=== PATIENT | female | born 1940 | race Caucasian/White ===

== ENCOUNTER 2017-02-01 11:15 | Inpatient (IN) | payer MEDICARE, OTHER ==
[~2017-02-01] VITALS: Ht 157.5 cm; Wt 60.8 kg
--- NOTE | ~2017-02-01 | ECH ---
Transthoracic Echocardiography Report (TTE) Demographics Patient Name NELY MESA Date of Study 02/03/2017 Patient Number [id number] Visit Number [id number] Date of 1940 Room Number 425 Accession Number [id number] Gender Female Age 76 year(s) Referring Ranjith De La Rosa Spray Machine Operator Jada Boland [facility] Physician Physician Interpreting Jess Bernardo Processes Chemical Design Engineer Physician Supervising Ordering Physician Ye Anderson MD/MIRELLA LOPEZ Nurse Stress Track Layer Conclusions Contractility Score Summary At rest the following contractility abnormalities were noted: Akinesis of the Apical cap segment. Contractility of all other segments appeared normal. Summary Technically fair exam. The estimated left ventricular ejection fraction is 55-60%. Mild to moderate left ventricular hypertrophy with [place] measuring 1.3-1.49cm, septum 1.4cm, LVPW 1.2cm. Diastolic assessment reveals Grade I diastolic dysfunction. Right ventricular hypertrophy with wall measuring 1.2cm. Right ventricle normal size and function. The left atrium is severely dilated by LA volume index measurement. Lipomatous interatrial septum. Mild mitral regurgitation by color Doppler. There is trivial aortic regurgitation by color Doppler. The ascending aorta appears mildly dilated. The maximum diameter measures 3.56 cm. Recommendation The patient will be given the results of this study by the physician who ordered the exam. Procedure Type of Study TTE procedure:Echo Complete SF. Procedure Date Date: 02/03/2017 Start: 07:25 AM Technical Quality: Adequate visualization Indications:Congestive heart failure and Chest pain. Additional Indications:Apical hypertrophy, RVH Appropriate Use Criteria: 9 Height: 62 inches Weight: 131 pounds BSA: 1.6 m Rhythm: Sinus bradycardia HR: 56 bpm BP: 130/66 mmHg M-Mode/2D Measurements LV Diastolic Dimension: 4.42 cm LV Systolic Dimension: 3.44 cm LV Septum Diastolic: 1.36 cm LV PW Diastolic: 1.22 cm AO Root Dimension: 2.49 cm Cardiac Output: 3.14 l/min LA Dimension: 5 cm Cardiac Index: 1.96 l/min*m LA volume index: 68 ml/m LVOT: 1.74 cm RV Base: 2.39 cm LVOT VTI: 23.58 cm RV Mid: 1.63 cm LV Stroke volume: 56.04 ml RV Length: 6.78 cm LV Stroke volume index: 35.02 ml/m Doppler Measurements AV Peak Velocity: 1.1 m/s MV Peak E-Wave: 0.75 m/s AV Peak Gradient: 4.84 mmHg MV Peak A-Wave: 0.93 m/s AV Mean Gradient: 2.67 mmHg MV E/A Ratio: 0.8 LVOT Peak Velocity: 0.93 m/s MV P1/2t: 139.4 msec AV Area (Continuity):1.74 cm MV Deceleration Time: 480.8 msec TR Velocity:1.93 m/s MV Area (PHT): 1.58 cm TR Gradient:14.84 mmHg PV Peak Velocity: 1.1 m/s Estimated RAP:5 mmHg PV Peak Gradient: 4.84 mmHg Estimated RVSP: 20 mmHg Estimated PASP: 19.84 mmHg RA Area: 9.58 cm Findings Left Ventricle The left ventricle is normal in size . Mild to moderate left ventricular hypertrophy with [place] measuring 1.3-1.49cm, septum 1.4cm, LVPW 1.2cm.Diastolic assessment reveals Grade I diastolic dysfunction. Right Ventricle Right ventricular hypertrophy with wall measuring 1.2cm. Right ventricle normal size and function. Left Atrium The left atrium is severely dilated by LA volume index measurement. Lipomatous interatrial septum. Right Atrium Normal right atrial size. Mitral Valve Mild mitral annular calcification. Mild mitral regurgitation by color Doppler. Aortic Valve The aortic valve was not well imaged. There is trivial aortic regurgitation by color Doppler. Tricuspid Valve Normal appearing tricuspid valve. Mild tricuspid regurgitation by color Doppler. Pulmonic Valve The pulmonic valve is not well visualized. Pericardial Effusion Trivial pericardial effusion. Miscellaneous The ascending aorta appears mildly dilated. The maximum diameter measures 3.56 cm. Pleural Effusion No evidence of pleural effusion. Contractility Score LV regional wall motion:(0-Non visualized 1-Normal 2-Hypokinesis 3-Akinesis 4-Dyskinesis 5-Aneurysm) Signature
[~2017-02-01 11:15] MED LIST: ASPIRIN EC81 MG PO; BUSPAR DPS10 MG PO; BYSTOLIC5 MG PO; CIPRO DPS500 MG PO; CYMBALTA30 MG PO; FAMOTIDINE40 MG PO; FLAGYL-DPS500 MG PO; FLORINEF0.1 MG PO; LASIX DPS20 MG PO; LYRICA50 MG PO; MORPHINE SULFAT15 M1 PO; OXYCODONE-ACET1 EAC1 PO; POTASSIUM CHLO20 ME2 PO; PRILOSEC DPS20 MG PO; SYNTHROID DP0.075 MG PO; VITAMIN D31000 UNIT PO; ZYLOPRIM-DPS300 MG PO
[2017-02-04] MEDS ORDERED: LOPRESSOR DPS12.5 MG PO (11:12)
--- NOTE | 2017-02-12 14:39 | ER ---
ADMIT: 02/01/2017 RM/LOC: 425 [facility] MR#: [id number] [address] [facility] [address] [place] [id number] NELY MESA [address] [place] [address] Emergency Room Report SEX: F AGE: 76 : 1940 DATE: 02/01/2017 ADDENDUM: CHIEF COMPLAINT: Hard to take a deep breath. HISTORY OF PRESENT ILLNESS: This is a 76-year-old, who said she just feels like she has a hard time taking a deep breath for the last 24 hours, but when she actually walks and moves around, she said it helps. She just feels like her abdomen is full and pushing up on her diaphragm. COURSE IN THE EMERGENCY ROOM: Did give her a GI cocktail, along with checked some labs and an EKG. Overall findings, EKG showed sinus bradycardia at a rate of 53. No ST elevation or depression. CMP is normal except for troponin elevated at 0.061. ProBNP elevated at 30,369. Electrolytes were otherwise normal. Her CBC is normal except for hemoglobin of 10.7, hematocrit of 32.4. Chest x-ray did show CHF. When asking her how the GI cocktail affected her, she said it actually improved her symptoms. She felt quite a bit better. Due to her elevated BNP and troponin, I am having her admitted in the hospital. I spoke with Dr. De La Cruz. She is admitting for Dr. Kasper. Lasix 40 mg IV is started down here in the emergency room. IMPRESSION: 1. Congestive heart failure exacerbation. 2. Elevated troponin. DIAN Farley / Mayank Colon MD / jitendral JOB #: [id number] CC: Rj Kasper MD, Attending Physician Rj Kasper MD, Family Physician
--- NOTE | 2017-02-13 10:56 | CO ---
ADMIT: 02/01/2017 RM/LOC: 425 [facility] MR#: [id number] [address] [address] NELY MESA [address] [place], [place] [id number] Consultation SEX: F AGE: 76 : 1940 DATE OF CONSULTATION: 02/02/2017 ATTENDING PHYSICIAN: Rj Kasper CONSULTING PHYSICIAN: Pradip Belcher MD REASON FOR CONSULTATION: Heart failure. HISTORY OF PRESENT ILLNESS: Nely is a 76-year-old lady, with an interesting history. In 2007, apparently, she had a heart catheterization and was diagnosed at that time with a hypertrophic cardiomyopathy variant. 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 This was complicated by history of orthostasis. She has been on low-dose Lasix along with Florinef and low-dose beta-rob therapy. She just saw Dr. Mercado, I believe in November, at that time, her Bystolic was stopped and she was put on metoprolol. For the past several months, she has been having fatigue and feeling tired. She has also been struggling with a vague abdominal pain. She describes as a pressure sensation or bloating in her upper abdomen. She has not been checking her blood pressure routinely. Over the past 7 to 10 days, her symptoms of abdominal bloating have worsened. She has had some tightness across her upper abdomen, she has had some orthopnea, but no PND. Friday morning, she woke up and she was unable to even take a full breath. This is what prompted her to come to the hospital. She said she would attempt to walk, but was limited by her shortness of breath. The emergency room evaluation revealed a proBNP of 13,000, her chest x-ray revealed evidence of heart failure and she was subsequently admitted. ALLERGIES: NO KNOWN MEDICAL ALLERGIES. HOME MEDICATIONS: Include: 1. Lyrica 50 mg at bedtime. 2. Omeprazole 20 mg daily. 3. Synthroid 75 mcg daily. 4. Allopurinol 300 mg daily. 5. Buspirone 10 mg b.i.d. 6. Cymbalta 30 mg daily. 7. Potassium 20 mEq b.i.d. 8. Florinef 0.1 mg daily. 9. Lasix 20 mg daily. 10.Pepcid 40 mg at bedtime. 11.Oxycodone. 12.Tylenol p.r.n. 13.Metoprolol 25 mg b.i.d. ILLNESSES: Include her apical hypertrophic cardiomyopathy, history of hypertension, orthostasis, history of iron deficiency anemia, restless legs syndrome, chronic low back pain, gastroesophageal reflux disease, hypothyroidism, and gout. ADMIT: 02/01/2017 RM/LOC: 425 [facility] MR#: [id number] [address] [address] NELY MESA [address] [place] [address] Consultation SEX: F AGE: 76 : 1940 PAST SURGICAL HISTORY: Includes previous back surgeries, hernia surgery, tonsillectomy, appendectomy. She has had tear duct surgery, cholecystectomy, and a hysterectomy. Right rotator cuff repair. FAMILY HISTORY: She said she had 1 brother, who had congenital heart disease; another brother, who recently was diagnosed with coronary disease and had coronary stents. She has a daughter, whom she is not quite sure of the history, but sounds like she suffered from heart failure. One brother with diabetes, her father had bladder cancer, mother and a daughter had breast cancer, another brother had lung cancer, mother and brother both with stroke. SOCIAL HISTORY: She is from the [place] originally. She moved here over the past several years. She has been for 8 years. She has 4 daughters. She used to work in a bank. She drinks only occasional beer now and then. No history of illicit drug use. Drinks 2 to 3 cups of coffee a day. Does not follow a special diet. REVIEW OF SYSTEMS: GENERAL: She tires easily and has been going on for 4 to 6 weeks. She has gained about 20 pounds over the past couple months. EYES: Positive for cataracts. ENT: Denies hearing loss or problems with nose, mouth or throat. PULMONARY/RESPIRATORY: She wakes more than once a night, feels tired in the morning. GASTROINTESTINAL: Positive for hiatal hernia. GENITOURINARY: Denies dysuria, hematuria, nocturia, urinary tract infection, or kidney stones. Denies history of renal insufficiency or failure. MUSCULOSKELETAL: Positive for arthritis, gout, muscle and joint pains. ENDOCRINE: Positive for hypothyroidism. HEMATOLOGIC: Denies history of anemia, easy bruising, or cancer. NEUROLOGIC: Denies chronic headaches, dizziness, syncope, stroke, seizures or numbness or tingling. PSYCHIATRIC: Positive for depression and anxiety. PHYSICAL EXAMINATION: VITAL SIGNS: Her blood pressure is 144/92, her pulse is 57, her respirations are 16, O2 saturations are 94% on room air. SKIN: Mildly pale. EYES: Sclerae clear. No xanthelasmas. ENT: Oral mucosa is pink and moist. No jugular venous distention or carotid bruits. CHEST: Mild kyphosis. Respirations are even and unlabored. Lungs are clear to auscultation. HEART: Regular. Mildly bradycardic. There is a soft systolic murmur heard mostly at the base. The 2nd heart sound maybe slightly prominent compared to the 1st heart sound. I cannot feel the point of maximum impulse. ABDOMEN: Protuberant, firm, mildly tender in the epigastric area. No bruits. MUSCULOSKELETAL: Positive for kyphosis. Gait is normal. EXTREMITIES: Peripheral pulses palpable. No clubbing, cyanosis or edema. ADMIT: 02/01/2017 RM/LOC: 425 [facility] MR#: [id number] 2620 [facility] [address] [place] [phone] NELY MESA [facility] [place] [id number] Consultation SEX: F AGE: 76 : 1940 PSYCHIATRIC: Alert and oriented. Mood and affect are appropriate. LABORATORY DATA: Sodium 138, potassium 3.9, her creatinine has increased slightly from 1.1 to 1.3, AST and ALT are normal. CK was 224, but her MB was normal. Her troponin was 0.089, proBNP is 13,000, TSH 2.08. White count 6.0, hemoglobin 10.7, and platelet count 193,000. IMAGING: Chest x-ray showed mild congestive heart failure with some interstitial edema, especially the right lung. EKG shows evidence of left ventricular hypertrophy, but no significant T-wave abnormalities, mildly prolonged QT interval. Mild left axis deviation. Sinus bradycardia. IMPRESSION: 1. Acute congestive heart failure. 2. History of apical hypertrophic cardiomyopathy. 3. Orthostasis. 4. Chronic anemia. 5. Equivocal troponin. RECOMMENDATIONS: On presentation, there is evidence of some volume expansion with an abnormal chest x-ray; elevated BNP; and increasing symptoms of orthopnea, shortness, of breath and dyspnea. She does not have a lot of edema or significant JVD, but it seems like she is retaining fluid in her abdominal region. She is already better with diuresis. I think her elevated troponin is not a reflection of an acute coronary syndrome, but is due to her heart failure with apical hypertrophic cardiomyopathy. Her treatment will be complicated by her history of orthostasis. Therefore, I would recommend that we only check her blood pressure in the standing position to adjust medications. I would like to hold her Florinef for now and we will see how she does symptomatically. We will continue diuresis today, but her creatinine has slightly increased, so we need to watch that closely. Tomorrow, we will recheck her echo to make sure that her LV function is stable and confirm this previous diagnosis of apical hypertrophic cardiomyopathy. The other consideration would be LV noncompaction. We are also going to hold any ANANDA inhibitors in the setting of her heart failure because of her orthostasis. The goal now is relieve her vascular congestion and symptomatic relief and then we can subtly and gently adjust her medications in the setting of her orthostasis. Pradip Belcher MD/ paula JOB #: [id number] CC: Rj Kasper, Attending Physician Rj Kasper, Family Physician
--- NOTE | 2017-02-14 09:59 | DS ---
ADMIT: 02/02/2017 RM/LOC: 425 [facility] MR#: [id number] [id number] [facility] [address] [place] [phone] NELY MESA [address] [place], [place] [address] Discharge Summary SEX: F AGE: 76 : 1940 ADMISSION DATE: 02/02/2017 DISCHARGE DATE: 02/03/2017 DISCHARGE DIAGNOSES: 1. Acute on chronic diastolic heart failure. 2. Hypertension. 3. History of orthostatic hypotension. 4. Hypothyroidism. 5. Elevated troponin. 6. Anemia. 7. History of apical hypertrophic cardiomyopathy. 8. Depression. 9. Anxiety. CONSULTATION: Cardiology. PROCEDURES: None. REASON FOR ADMISSION: A very pleasant 76-year-old female with past medical history of hypertrophic cardiomyopathy, orthostasis, chronic heart failure who presents to [facility] Emergency Room on the day of admission with complaints of shortness of breath and abdominal fullness along with some edema. The patient was found to be in acute heart failure and was admitted for further evaluation and treatment. For complete details, please see history and physical dictated on the day of admission. HOSPITAL COURSE: At the time of admission, the patient was admitted to a monitored bed. She had a mildly elevated troponin that was thought to be secondary to her heart failure. She underwent monitoring with serial cardiac enzymes and EKGs as well as telemetry monitoring. Cardiology saw her. She underwent an echocardiogram. She underwent diuresis. The patient improved nicely with diuresis. Her dyspnea and abdominal symptoms all completely just slowly went away. She ambulated and ate. She was switched from IV to oral diuretics. As mentioned, she ambulated, ate, and was thought to be ready for discharge on 02/03. Discharge medications are found on her discharge medication list. Discharge diet is a 2 g sodium cardiac diet as tolerated. She will have follow up with me in the next couple of weeks at [facility] and follow up in two weeks at [facility]. Rj Kasper MD/ michelle JOB #: [id number] CC: Rj Kasper MD, Attending Physician Rj Kasper MD, Family Physician
--- NOTE | 2017-02-20 12:10 | HP ---
ADMIT: 02/01/2017 RM/LOC: 425 [facility] MR#: [id number] [address] [address] NELY MESA [address] [place], [place] [address] History and Physical SEX: F AGE: 76 : 1940 DATE OF SERVICE: CHIEF COMPLAINT: Upper epigastric pressure, chest pressure. HISTORY OF PRESENT ILLNESS: Ms. Little is a very pleasant 76-year-old female. She has a past medical history significant for history of hypothyroidism, GERD, hypertrophic cardiomyopathy, iron deficiency anemia, gout, restless leg, who presented to the ER with a complaint of upper epigastric fullness. The patient reports that she has been battling with this upper epigastric fullness since October when she was in with diverticulitis. She reports over the last one week, things got much worse. She reports she has had shortness of breath and feels unable to take a deep breath. Reports she has actually had symptoms of orthopnea. She has had no lower extremity edema. She reports that she has not had any trouble as far as any palpitation. She reports she is not nauseated, but she has had some heartburn. She reports that she also has been gaining weight just over the last several weeks also. She reports that otherwise just not been feeling well. It sounds as if she has been seen on different occasions for this and it has not been completely clear what the cause was. She reports that she has had ultrasounds done although I do not have evidence of those here in the computer, but really reports she is not feeling well. In the ER, it sounds like she got a GI cocktail and actually started to feel better. They thought they were going to let her go home but then on laboratory data was noted to have a chest x-ray showing congestive heart failure as well as a BNP elevated at 13,000 and an elevated troponin I. She saw Dr. Mercado a month ago, he changed her from Bystolic 2.5 to metoprolol. PAST MEDICAL HISTORY: Significant for: 1. Hypothyroidism. 2. GERD. 3. Chronic low back pain. 4. Depression. 5. Gout. 6. Hypertension. 7. Restless leg. 8. Hypertrophic cardiomyopathy, on a heart catheterization done in 2007. 9. Iron-deficiency anemia. 10.Status post hysterectomy. 11.Status post breast surgery. 12.Status post cholecystectomy. 13.Status post spinal fusion. 14.History of cervical fusion. 15.Eye surgery. 16.Right rotator cuff repair. 17.Hernia. 18.Left carpal tunnel surgery. 19.Status post appendectomy. SOCIAL HISTORY: She lives here in [place]. She does not smoke or use ADMIT: 02/01/2017 RM/LOC: 425 [facility] MR#: [id number] [address] [address] [address]ELY M[address]A [address] [place] [address] History and Physical SEX: F AGE: 76 : 1940 any significant alcohol. MEDICATIONS: Her home medication list is: 1. Sinemet 25/100 one p.o. at bedtime. 2. Lyrica 50 mg p.o. at bedtime. 3. Omeprazole 20 mg p.o. daily. 4. Synthroid 75 mcg p.o. daily. 5. Allopurinol 300 mg p.o. daily. 6. BuSpar 10 mg p.o. b.i.d. 7. Cymbalta 30 mg p.o. daily. 8. KCl 20 mEq p.o. b.i.d. 9. Florinef 0.1 mg p.o. daily. 10.Furosemide 20 mg p.o. daily. 11.Pepcid 40 mg p.o. at bedtime. 12.Oxycodone p.r.n. 13.Metoprolol 25 mg p.o. b.i.d. ALLERGIES: NO KNOWN MEDICAL ALLERGIES. FAMILY HISTORY: Relatively noncontributory. REVIEW OF SYSTEMS: Obtained, was otherwise essentially negative except for some pain in her bilateral legs. PHYSICAL EXAMINATION: HEENT: Pupils are equal, round, and reactive. Her right eye has some scleral injection. Oropharynx has moist mucous membranes. NECK: Supple. HEART: Normal rate with a regular rhythm. LUNGS: Diminished breath sounds in the bases with a few crackles, but otherwise clear to auscultation. She does complain of light palpation on the left upper quadrant. ABDOMEN: Benign. EXTREMITIES: Have no evidence of edema. SKIN: Warm and dry. ASSESSMENT AND PLAN: 1. Upper epigastric/chest pressure, certainly resolved with a dose of IV Lasix. Elevated BNP and positive troponin, we will go ahead and trend out her cardiac enzymes. We will ask LU to see in the morning. We will go ahead and repeat her electrolytes in the morning. We will check ADMIT: 02/01/2017 RM/LOC: 425 [facility] MR#: [id number] [address] [address] BONITANELY BATISTA [address] [place] [address] History and Physical SEX: F AGE: 76 : 1940 orthostatic blood pressure and pulse, likely does not need her Florinef at this time as her blood pressure is running pretty high. We will go ahead and check a TSH with her history of hypothyroidism. 2. Acute probably diastolic congestive heart failure. 3. Depression. 4. Gout. 5. Restless leg. 6. Gastroesophageal reflux disease. We will continue all of her home medications otherwise. 7. Scleral injection. We will monitor. Give her antibiotic eye drops if needed. Otherwise, I spent 40 minutes on admission and evaluation of this patient. Lindsey De La Cruz MD/ paula JOB #: [id number] CC: Rj Kasper, Attending Physician Rj Kasper, Family Physician
== END 2017-02-03 14:00 | disposition home or self-care (01) | DRG 293 ==
LOC: ER 11:15 → 4PCU 13:25
PROVIDERS: ADMIT Internal Medicine
DX: I11.0 Hypertensive heart disease with heart failure (principal); I42.2 Other hypertrophic cardiomyopathy; E03.9 Hypothyroidism, unspecified; I50.33 Acute on chronic diastolic (congestive) heart failure; K21.9 Gastro-esophageal reflux disease without esophagitis; D50.9 Iron deficiency anemia, unspecified; I95.1 Orthostatic hypotension; F41.9 Anxiety disorder, unspecified; G25.81 Restless legs syndrome; K44.9 Diaphragmatic hernia without obstruction or gangrene; M10.9 Gout, unspecified; M54.9 Dorsalgia, unspecified; G89.29 Other chronic pain; F32.9 Major depressive disorder, single episode, unspecified; Z98.1 Arthrodesis status; Z82.49 Family history of ischemic heart disease and other diseases of the circulatory system

== ENCOUNTER → 2017-03-11 | Outpatient (CLI) | payer MEDICARE, OTHER ==
[~2017-03-11] MED LIST changes: +LOPRESSOR DPS12.5 MG PO
== END | disposition home or self-care (01) ==
LOC: RAD.S 02-05 14:30
DX: N63 Unspecified lump in breast (principal)